=== PATIENT | male | born 1960 | race Caucasian/White ===

== ENCOUNTER → 2016-08-30 | Outpatient (CLI) | payer OTHER ==
--- NOTE | 2016-08-30 11:12 | DI ---
XR WRIST COMPLETE MIN 3VW,08/30/2016 10:13 AM: Clinical History: Right wrist pain Previous Exam: None at this facility. Findings: 3 views of the right wrist are obtained, and demonstrate advanced degenerative osteoarthritis predomi nantly involving the first carpometacarpal joint. There is some fragmentation of the trapezium which likely represents an old injury. There is no diastases of the scapholunate interval. The surrounding soft tissues are unremarkable. Impression: Diffuse degenerative changes of the right wrist worst at the first carpometacarpal joint.
== END ==
LOC: MOB RAD 10:14
DX: M25.531 Pain in right wrist (principal); M18.11 Unilateral primary osteoarthritis of first carpometacarpal joint, right hand
CPT/HCPCS: 73110